=== PATIENT | male | born 1955 | race Caucasian/White ===

== ENCOUNTER 2020-06-16 13:14 | Outpatient (CLI) | payer MEDICARE, BC, SELFPAY | END 2020-06-16 13:15 | disposition home or self-care (01) | LOC: WOUND 13:14 | PROVIDERS: PCP Nurse Practitioner Family; Visit Provider Thoracic Surgery (Cardiothoracic Vascular Surgery) | DX: L97.411 Non-pressure chronic ulcer of right heel and midfoot limited to breakdown of skin (principal) | CPT/HCPCS: 11042; 11045; 87070; 87077; 87186; G0463; L4397 ==

== ENCOUNTER 2020-06-23 15:08 | Outpatient (CLI) | payer MEDICARE, BC, SELFPAY | END 2020-06-23 15:09 | disposition home or self-care (01) | LOC: WOUND 15:12 | PROVIDERS: PCP Nurse Practitioner Family; Visit Provider Thoracic Surgery (Cardiothoracic Vascular Surgery) | DX: L89.613 Pressure ulcer of right heel, stage 3 (principal) | CPT/HCPCS: 11042; 11045 ==

== ENCOUNTER 2020-06-30 08:52 | Outpatient (CLI) | payer MEDICARE, BC, SELFPAY | END 2020-06-30 08:53 | disposition home or self-care (01) | LOC: WOUND 08:53 | PROVIDERS: PCP Nurse Practitioner Family; Visit Provider Nurse Practitioner Family | DX: L97.412 Non-pressure chronic ulcer of right heel and midfoot with fat layer exposed (principal) | CPT/HCPCS: 11042; 11045; L3260 ==